=== PATIENT | male | born 1965 | race Two or more races ===

== ENCOUNTER 2021-03-01 09:45 | Outpatient (CLI) | payer OTHER | END 2021-03-01 10:00 | disposition home or self-care (01) | LOC: PPH VACUNA 09:45 | PROVIDERS: ATTEND Emergency Medicine Pediatric Emergency Medicine | DX: Z23 Encounter for immunization (principal) ==

== ENCOUNTER 2021-07-13 14:34 | Outpatient (CLI) | payer OTHER | END 2021-07-13 14:44 | disposition home or self-care (01) | LOC: RAD 14:34 | PROVIDERS: ATTEND Orthopaedic Surgery | DX: M25.562 Pain in left knee (principal) ==